=== PATIENT | male | born 1965 | race Caucasian/White ===

== ENCOUNTER 2017-02-18 07:32 | Day surgery (SDC) | payer BC, OTHER ==
[2017-02-18] MEDS ORDERED: NS 1,000 ML IV ONE (07:36)
[2017-02-18] MEDS ORDERED: diphenhydrAMINE 25 MG CAP PO ONE (07:36)
[2017-02-18] MEDS ORDERED: ASPIRIN EC 325 MG TAB PO ONE (07:36)
[2017-02-18] MEDS ORDERED: DIAZEPAM 5 MG TAB PO ONE (07:36)
[2017-02-18] MEDS ORDERED: FAMOTIDINE 20 MG TAB PO ONE (07:36)
--- NOTE | 2017-02-18 08:08 | CPEKG ---
Heart Rate: 66 RR Interval: 909 P-R Interval: 168 QRSD Interval: 80 QT Interval: 380 QTC Interval: 399 P Cro[place]: 54 QRS [place]: -18 T Wave [place]: 44 EKG Severity - OTHERWISE NORMAL ECG - EKG Impression: SINUS RHYTHM EKG Impression: BORDERLINE LEFT AXIS DEVIATION Electronically Signed By: Maciel Hedrick 18-Feb-2017 12:37:49
[2017-02-18 08:09] LABS: PLATELET COUNT 227 10^3/uL (150-400)
[2017-02-18 08:19] LABS: INR 0.97 (0.83-1.16); PROTIME(PATIENT) 13.1 SEC (12.0-15.0)
[2017-02-18] MEDS ORDERED: MIDAZOLAM 2 MG/2 ML VIAL ONE ×2 (09:00→09:45)
[2017-02-18] MEDS ORDERED: fentaNYL 100 MCG/2 ML INJ ONE ×2 (09:00→09:45)
[2017-02-18] MEDS ORDERED: LIDOCAINE 1% 300 MG/30 ML SDV ONE (09:00)
[2017-02-18] MEDS ORDERED: IOPAMIDOL (ISOVUE-370) 150 ML BTL IV ONE (09:01)
--- NOTE | 2017-02-18 09:13 | PDHPUP ---
History & Physical Update H&P update statement: This history and physical update is based on an assessment of the patient which was completed after admission or registration (within 24 hours), but prior to the surgery/procedure. H&P update: H&P reviewed & patient examined, no change in patient's condition since H&P completed
--- NOTE | 2017-02-18 09:13 | PDPROPOC ---
Sedation Plan of Care Sedation Plan of Care: vital signs stable, mental status noted, patient educated of risks, benefits, alternatives, patient can tolerate sedation ASA Classification: ASA 2 Planned drugs: fentanyl, midazolam Mallampati Score: Class 2 Mallampati Reference Image: Patient passed 3-3-2 rule?: Yes
[2017-02-18] MEDS ORDERED: ONDANSETRON 4 MG/2 ML VIAL IVP PRN (10:10)
[2017-02-18] MEDS ORDERED: NITROGLYCERIN 0.4 MG BTL SL PRN (10:10)
[2017-02-18] MEDS ORDERED: ATROPINE SULFATE 1 MG/10 ML SYR IVP PRN (10:10)
[2017-02-18] MEDS ORDERED: HYDROCODONE/APAP 5/325 TAB PO PRN (10:10)
[2017-02-18] MEDS ORDERED: OXYCODONE/APAP 5/325 TAB PO PRN (10:10)
--- NOTE | 2017-02-18 10:52 | CPIP ---
[f rep st] INVASIVE CARDIAC PROCEDURE DATE OF PROCEDURE: 02/18/2017 PROCEDURE: 1. Coronary angiography. 2. Left ventriculography. INDICATION: 1. Chest pain concerning for class 2-3 angina. 2. Abnormal nuclear stress test with inferior defect, which would be considered low risk. ACCESS: The patient was prepped and draped in sterile fashion. 1% lidocaine was used to anesthetize the right inguinal region. A 6-Norwegian introducer sheath was placed selectively into the right commo n femoral artery via modified Seldinger technique. CORONARY ANGIOGRAPHY: A 6-Norwegian JL4 was advanced to the left main coronary artery and images obtain ed. The left main coronary artery bifurcated into an LAD and circumflex coronary arteries. The left main coronary artery appeared to have a long segmental 20% stenosis in the distal segment. The left anterior descending coronary artery gave rise to 1 prominent diagonal branch. The left anterior rj cending coronary artery had mild luminal irregularities throughout. There was no stenosis greater th an 20%. The circumflex coronary artery was a moderate-sized vessel. Circumflex coronary artery was nondominant. Circumflex coronary artery gave rise to 2 OM branches. The circumflex coronary artery and its complement of OM branches appeared normal. A 6-Norwegian JR4 was advanced to the right coronary artery and images obtained. The right coronary art cayla was a bansal's crook right coronary artery. It was dominant. The right coronary artery was di ffusely diseased. In the proximal segment, there was a segmental 20% stenosis present. 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 In the posterior descending coronary artery, there was a segmental 20% stenosis present. LEFT VENTRICULOGRAPHY: A 6-Norwegian pigtail catheter was advanced to the left ventricle and images obt ained. Left ventricle was normal in size. It had normal systolic function. Estimated ejection frac tion of 60%. COMPLICATIONS: None. CONCLUSIONS: 1. Mild coronary artery disease without flow limitation. 2. Normal left ventricular size and systolic function. PLAN: For medical management. /[id number]/MODL
[2017-02-18] MEDS ORDERED: METOPROLOL TARTRATE 25 MG TAB PO SCH (21:00)
[2017-02-19] MEDS ORDERED: OMEGA-3 FATTY ACIDS 1,000 MG CAP PO SCH (09:00)
[2017-02-19] MEDS ORDERED: ATORVASTATIN CALCIUM 40 MG TAB PO SCH (09:00)
[2017-02-19] MEDS ORDERED: NON-FORMULARY NEW DRUG (Esomeprazole Mag Trihydrate [Nexium] 40 MG) PO SCH (09:00)
[2017-02-19] MEDS ORDERED: MULTIVITAMINS 1 EACH TAB PO SCH (09:00)
[2017-02-19] MEDS ORDERED: LISINOPRIL 10 MG TAB PO SCH (09:00)
[2017-02-19] MEDS ORDERED: ASPIRIN 81 MG CHEWABLE TAB PO SCH (09:00)
== END 2017-02-18 14:23 | disposition home or self-care (01) ==
LOC: FCATH 07:32
PROVIDERS: ATTEND Internal Medicine Cardiovascular Disease
PROC: 4A023N7 Measurement of Cardiac Sampling and Pressure, Left Heart, Percutaneous Approach (ICD-10-PCS; principal; 2017-02-18)
PROC: B2111ZZ Fluoroscopy of Multiple Coronary Arteries using Low Osmolar Contrast (ICD-10-PCS; principal; 2017-02-18)
PROC: B2151ZZ Fluoroscopy of Left Heart using Low Osmolar Contrast (ICD-10-PCS; principal; 2017-02-18)
DX: R07.9 Chest pain, unspecified (principal); R94.39 Abnormal result of other cardiovascular function study; I25.10 Atherosclerotic heart disease of native coronary artery without angina pectoris; I10 Essential (primary) hypertension; E78.5 Hyperlipidemia, unspecified; F17.210 Nicotine dependence, cigarettes, uncomplicated; Z82.49 Family history of ischemic heart disease and other diseases of the circulatory system; Z82.3 Family history of stroke
CPT/HCPCS: J1644; J2250; J3010; Q9967